=== PATIENT | female | born 1980 | race Two or more races ===

== ENCOUNTER 2019-09-14 10:41 | Emergency (ER) | payer BC ==
[~2019-09-14] VITALS: Ht 147.3 cm; Wt 63.5 kg
--- NOTE | 2019-09-14 10:48 | NUR ---
ED Nurse Note: Pt ambulated to ED with c/o of flu-like symptoms x 3 days. Pt complains of generalized weakness. Placed on bed. VSS; afebrile at this time. Will continue to monitor.
[2019-09-14 10:50] VITALS: BP 121/83
--- NOTE | 2019-09-14 11:05 | NUR ---
ED Nurse Note: Flu swab done.
--- NOTE | 2019-09-14 11:10 | Emergency Room Report ---
History of Present Illness General Chief Complaint: Upper Respiratory Illness Source: Patient Present Illness HPI Disclaimer: Please note that this report is being documented using [employer] technology. This can lead to erroneous entry secondary to incorrect interpretation by the dictating instrument. HPI: 39-year-old female friends for 3 days of flulike symptoms. She reports diffuse myalgias, cough, chest congestion, sore throat, nasal congestion and ear fullness. Denies vertiginous symptoms or tinnitus. Patient works as a nurse in the hospital. She did receive a flu shot this year. Denies vomiting, diarrhea, rash. She reports fevers that have been responding to Tylenol at home. PMH: Denies PSH: Denies Allergies: Denies Social Hx: Denies Allergies: Coded Allergies: No Known Allergies (Unverified , 09/14/19) Patient History Last Menstrual Period: 08/12/19 Now: No Nursing Documentation-PMH Past Medical History: No Stated History Review of Systems All Other Systems: negative except mentioned in HPI Physical Exam Vital Signs Date Time Temp Pulse Resp B/P (MAP) Pulse Ox O2 Delivery O2 Flow Rate FiO2 09/14/19 10:46 98.1 96 16 121/83 (96) 96 Room Air General: Awake and alert, no acute distress HEENT: NC/AT. EOMI. nasal turbines are edematous bilaterally. Tympanic membranes are pearly botello and nonbulging. Pharynx is erythematous and mildly edematous though uvula is midline and nonobstructing. Speaking full sentences Neck: Supple, trachea midline, mild cervical lymphadenopathy Cardiovascular: RRR. S1 and S2 normal. No murmur appreciated Resp: Normal work of breathing. No respiratory distress. Intermittent cough. No wheezing or crackles. Abdomen: Abdomen is soft, nondistended. Nontender Skin: Intact. No abrasions, laceration or rash over the exposed skin MSK: Normal tone and bulk. Moving all extremities. No obvious deformity. Neuro: Awake and alert. Mentating appropriately. Medical Decision Making Diagnostic Impression: Primary Impression: Upper respiratory symptom Additional Impression: Viral illness ER Course 39-year-old female presents with 3 days of fevers, myalgias and URI symptoms. Likely a viral syndrome or possibly influenza. Will obtain chest x-ray to rule out pneumonia. Motrin given for sore throat and discomfort. Microbiology Date/Time Source Procedure Growth Status 09/14/19 11:00 Nasal Nares - Final Complete 09/14/19 11:00 Nasal Nares - Final Complete Chest X-Ray Diagnostic Results Chest X-Ray Diagnostic Results : Chest X-Ray Ordered: Yes # of Views/Limited/Complete: 1 View Indication: Shortness of Breath EP Interpretation: Yes Interpretation: no consolidation, no effusion, no pneumothorax, no acute cardiopulmonary disease Impression: No acute disease Electronically Signed by: Electronically signed by Dr. Shon Renner Last Vital Signs Date Time Temp Pulse Resp B/P (MAP) Pulse Ox O2 Delivery O2 Flow Rate FiO2 09/14/19 10:50 98.1 96 16 121/83 96 Room Air Reevaluation Impression Flu swabs are negative. No evidence of pneumonia or other pathology on chest x- ray. Likely viral syndrome the patient be treated symptomatically with continued Tylenol Motrin. Will follow up with PMD/clinic. Discussed reasons to return to the emergency department as well as hand hygiene and the importance of hydration. She understands and agrees with this treatment plan will be discharged home. Disposition: HOME, SELF-CARE Condition: Stable Scripts Acetaminophen* (ACETAMINOPHEN 325MG TABLET*) 325 Mg Tablet 650 MG ORAL Q6H PRN for fever for 5 Days, #40 TAB Prov: Shon Renner MD 09/14/19 Ibuprofen* (MOTRIN*) 600 Mg Tablet 600 MG ORAL THREE TIMES A DAY, #30 TAB 0 Refills Prov: Shon Renner MD 09/14/19 Shon Renner MD Sep 14, 2019 11:10
--- NOTE | 2019-09-14 11:42 | NUR ---
ED Nurse Note: xray complete
[2019-09-14] MEDS ORDERED: IBUPROFEN600 MG ORAL (11:55)
[2019-09-14] MEDS ORDERED: ACETAMINOPHEN325 M1 ORAL (11:55)
[2019-09-14 12:06] VITALS: BP 124/84
--- NOTE | 2019-09-14 12:06 | NUR ---
ER DISCHARGE NOTE: Patient is cleared to be discharged per ERMD, pt is aox4, on room air, with stable vital signs. pt was given dc and prescription instructions, pt was able to verbalize understanding, pt id band removed. pt is able to ambulate with steady gait. pt took all belongings.
--- NOTE | 2019-09-14 13:13 | Diagnostic Imaging Report ---
Indication: Cough Technique: XRAY Chest 1v Comparison: None Findings: Heart size and mediastinal contours are within normal limits for AP technique. There is no focal airspace consolidation, pneumothorax or pleural effusion. Osseous structures demonstrate no acute abnormality. Impression: No radiographic evidence of acute cardiopulmonary disease. No focal airspace consolidation as questioned clinically.
== END 2019-09-14 12:06 | disposition home or self-care (01) ==
LOC: EMR 11:25
DX: J06.9 Acute upper respiratory infection, unspecified (principal); B34.9 Viral infection, unspecified
CPT/HCPCS: 71045; 86710; 99283